=== PATIENT | female | born 1995 | race Caucasian/White ===

== ENCOUNTER 2018-02-21 02:49 | Emergency (ER) | payer OTHER, BC ==
[2018-02-21 02:57] VITALS: BP 138/93
--- NOTE | 2018-02-21 03:08 | EDPHY ---
H & P Stated Complaint: pt says she fell onto nose while doing gymnastics, concerned poss nose fx Time Seen by Provider: 02/21/18 03:08 HPI/ROS: HPI CHIEF COMPLAINT: Fall and head, alcohol intoxication HISTORY OF PRESENT ILLNESS: Patient is a 22-year-old female, she had multiple alcoholic beverages evening, she was doing a gymnastic mood that required her holding onto a pole, she fell off the pole landing on her head. She states she struck the right forehead and her nose. No LOC but felt foggy. She has a right -sided headache. Denies any chest pain shortness of breath, denies neck pain. Main complaint is nasal bridge pain and right forehead where she struck her head. It was a wood floor. Past Medical History: No significant medical history Past Surgical History: Denies any significant surgical history Social History: Smokes marijuana, denies illicit drugs or alcohol daily. Drinks socially. Had drinks this evening. Family History: Noncontributory ROS REVIEW OF SYSTEMS: A comprehensive 10 point review of systems is otherwise negative aside from elements mentioned in the history of present illness. Exam Constitutional smells of alcohol, otherwise alert and oriented, GCS 15, triage nursing summary reviewed, vital signs reviewed, awake/alert. Eyes normal conjunctivae and sclera, EOMI, PERRLA. HENT head/neck: Right forehead soft tissue contusion, and additionally midface stable, no crepitus, over the nasal bridge there is some mild swelling. No ecchymosis. On further examination of the nasal passages nose no septal hematoma. moist mucus membranes, no epistaxis, neck supple/ no meningismus, no raccoon eyes. Respiratory clear to auscultation bilaterally, normal breath sounds, no respiratory distress, no wheezing. Cardiovascular rate normal, regular rhythm, no murmur, no edema, distal pulses normal. Gastrointestinal soft, non-tender, no rebound, no guarding, normal bowel sounds, no distension, no pulsatile mass. Genitourinary no CVA tenderness. Musculoskeletal no midline vertebral tenderness, full range of motion, no calf swelling, no tenderness of extremities, no meningismus, good pulses, neurovascularly intact. Skin pink, warm, & dry, no rash, skin atraumatic. Neurologic awake, alert and oriented x 3, AAOx3, moves all 4 extremities equally, motor intact, sensory intact, CN II-XII intact, normal cerebellar, normal vision, normal speech. Psychiatric normal mood/affect. Heme/Lymph/Immune no lymphadenopathy. Differential Diagnosis: Includes but is not limited to in a particular order closed-head injury, intracranial bleed, skull fracture, soft tissue injury, subdural, nasal bone fracture Medical Decision Making: Plan for this patient CT scan head without contrast rule out significant bleed. Ice pack. And re-evaluate. Re-evaluation: CT scan head without contrast negative for acute traumatic injury to the brain. There is a very small fracture to the nasal bridge. Indication for CT scan head without contrast he was fall in the setting of alcohol intoxication. Recommend ice, anti-inflammatory pain medicine. Recommend following up with Dr. Turpin if she has further concussion like symptoms, additionally recommending following up with ENT once the swelling goes down if she still feels cosmetically her nose is abnormal. Referrals have been provided. Source: Patient - Medical/Surgical History Hx Asthma: No Hx Chronic Respiratory Disease: No Hx Diabetes: No Hx Cardiac Disease: No Hx Renal Disease: No Hx Cirrhosis: No Hx Alcoholism: No Hx HIV/AIDS: No Hx Splenectomy or Spleen Trauma: No Other PMH: crohn's, d & c, lymph nodes removed from neck - Social History Smoking Status: Former smoker Constitutional: Initial Vital Signs Temperature (C) 36.7 C 02/21/18 02:53 Heart Rate 84 02/21/18 02:53 Respiratory Rate 16 02/21/18 02:53 Blood Pressure 138/93 H 02/21/18 02:53 O2 Sat (%) 96 02/21/18 02:53 O2 Delivery Mode Room Air Allergies/Adverse Reactions: No Known Allergies Allergy (Unverified 02/21/18 02:57) Home Medications: Medication Instructions Recorded NK [No Known Home Meds] 02/21/18 Departure - Departure Disposition: Home, Routine, Self-Care Clinical Impression: Head injury Qualifiers: Encounter type: initial encounter Qualified Code(s): S09.90XA - Unspecified injury of head, initial encounter Concussion Qualifiers: Encounter type: initial encounter Loss of consciousness presence/duration: without LOC Qualified Code(s): S06.0X0A - Concussion without loss of consciousness, initial encounter Alcohol intoxication Qualifiers: Complication of substance-induced condition: uncomplicated Qualified Code(s): F10.920 - Alcohol use, unspecified with intoxication, uncomplicated Nasal bone fracture Qualifiers: Encounter type: initial encounter Fracture type: closed Qualified Code(s): S02.2XXA - Fracture of nasal bones, initial encounter for closed fracture Condition: Good Instructions: Nasal Fracture (ED), Concussion (ED), Head Injury (ED) Additional Instructions: 1. Ice her nose over the next 48 hr 2. Return emergency room if you have severe headache vomiting or any questions or concerns 3. Do recommend taking Tylenol and Motrin for pain control you may alternate these every 6-8 hours. Referrals: Patient,NotPresent [Primary Care Provider] - As per Instructions Silvia Turpin MD [Medical Doctor] - As per Instructions Lang Bran MD [Medical Doctor] - As per Instructions
== END 2018-02-21 03:37 | disposition home or self-care (01) ==
DX: S02.2XXA Fracture of nasal bones, initial encounter for closed fracture (principal); S06.0X0A Concussion without loss of consciousness, initial encounter; F10.920 Alcohol use, unspecified with intoxication, uncomplicated; Z87.891 Personal history of nicotine dependence; W01.198A Fall on same level from slipping, tripping and stumbling with subsequent striking against other object, initial encounter